=== PATIENT | male | born 1945 | race Caucasian/White ===

== ENCOUNTER 2023-07-16 05:21 | Emergency (ER) | payer OTHER, MEDICARE ==
[~2023-07-16] VITALS: Ht 185.4 cm; Wt 90.0 kg
[2023-07-16 06:48] VITALS: TEMP 97.7
[2023-07-16 08:27] VITALS: BP 123/73; PULSE 70; RESP 20; O2SAT 96
== END 2023-07-16 08:32 | disposition home or self-care (01) ==
LOC: ER 05:22
DX: S00.01XA Abrasion of scalp, initial encounter (principal); S00.81XA Abrasion of other part of head, initial encounter; W19.XXXA Unspecified fall, initial encounter; Y93.89 Activity, other specified; Y92.89 Other specified places as the place of occurrence of the external cause; Y99.8 Other external cause status
CPT/HCPCS: 70450; 72125; 99284